=== PATIENT | male | born 1940 | race Caucasian/White ===

== ENCOUNTER 2016-12-12 22:23 | Emergency (ER) | payer BC, MEDICARE ==
[~2016-12-12 22:23] MED LIST: ATENOLOL50 MG PO; FLOMAX0.4 MG PO; HYDROCHLOROTH12.5 MG PO; INDOCIN50 MG PO; IPRATROPIUM BRO15 ML NS; ISOSORBIDE MONO60 M1 PO; KEFLEX500 MG PO; LOTREL 5/201 CAP PO; NASONEX17 GM NS; VYTORIN 10/80 T1 TAB PO
== END 2016-12-13 01:33 | disposition left against medical advice (07) ==
LOC: EDMED 22:23
DX: S49.91XA Unspecified injury of right shoulder and upper arm, initial encounter (principal); W01.0XXA Fall on same level from slipping, tripping and stumbling without subsequent striking against object, initial encounter; Z53.29 Procedure and treatment not carried out because of patient's decision for other reasons